=== PATIENT | female | born 1955 | race Two or more races ===

== ENCOUNTER 2018-01-01 11:16 | Emergency (ER) | payer MEDICAID ==
[~2018-01-01 11:16] MED LIST: CEL100T PO; LISI-275 PO; NOR10T; OMEP20TA51 PO
[2018-01-01] MEDS ORDERED: PANTOPRAZOLE 40 MG/10 ML VIAL IV STA (11:25)
[2018-01-01] MEDS ORDERED: SODIUM CHLORIDE 0.9% 500 ML IVB ONE (11:25)
[2018-01-01] MEDS ORDERED: HYDROmorphone HCL 2 MG/ML VL IV ONE ×2 (11:30→15:45)
[2018-01-01] MEDS ORDERED: ONDANSETRON HCL 4 MG/2 ML VIAL IV ONE ×2 (11:30→15:30)
[2018-01-01 12:43] LABS: Hematocrit 25.8 % (36.0-46.0); Hemoglobin 8.6 g/dL (12.2-16.2); Mean Corpuscular Hemoglobin 28.5 pg (28.0-32.0); Mean Corpuscular Hgb Conc. 33.4 g/dL (32.0-36.0); Mean Corpuscular Volume 85.2 fL (80.0-100.0); Platelet Count (auto) 481 10^3/uL (140-450); Red Blood Cells 3.03 10^6/uL (4.0-5.20); Red Cell Distribution Width 14.4 % (11.8-14.3); White Blood Cell 11.7 10^3/uL (4.4-10.8)
[2018-01-01 12:48] LABS: Basophils % (manual) 0 (0.0-2.0); Blast Cells 0; Metamyelocytes % 0; Myelocytes % 0; Promyelocytes % 0; Reactive Lymphocytes 0
[2018-01-01 13:03] LABS: Albumin 2.4 g/dL (3.4-5.0); BUN/Creatinine Ratio 21.1; Bilirubin, Total 0.2 mg/dL (0.2-1.0); Calcium 9.5 mg/dL (8.5-10.1); Magnesium 2.1 mg/dL (1.6-2.6); Potassium 4.4 mmol/L (3.5-5.1); Total Protein 7.9 g/dL (6.4-8.2)
[2018-01-01 13:25] LABS: Band Neutrophils % (manual) 1; Eosinophils % (manual) 6 (0-7); Lymphocytes % (manual) 22 (10.0-50.0); Monocytes % (manual) 5 (0-12)
[2018-01-01 15:07] LABS: Urine Bacteria NONE SEEN /hpf (None Seen); Urine Blood Negative /uL (Negative); Urine Specific Gravity 1.011 (1.001-1.035); Urine WBC 2 /hpf (0 - 5)
[2018-01-01 15:28] VITALS: BP 141/111
[2018-01-01] MEDS ORDERED: MORPHINE SULFATE 8mg/ml INJ SDV IV ONE (15:30)
== END 2018-01-01 16:20 | disposition short-term general hospital (02) ==
LOC: EDBD 11:16 → ER 11:16
DX: D72.829 Elevated white blood cell count, unspecified (principal); R53.1 Weakness; I10 Essential (primary) hypertension; R11.2 Nausea with vomiting, unspecified; Z90.49 Acquired absence of other specified parts of digestive tract; Z87.891 Personal history of nicotine dependence; Z98.890 Other specified postprocedural states; Z91.041 Radiographic dye allergy status
CPT/HCPCS: 36415; 74176; 80053; 81001; 82150; 83690; 83735; 85007; 85027; 93005; 94761; 96361; 96374; 96375; 96376; 99285; C9113; J1170; J2405; J7040

== ENCOUNTER 2024-11-14 00:24 | Inpatient (IN) | payer MEDICAID, OTHER ==
[~2024-11-14] VITALS: Ht 138.4 cm; Wt 54.5 kg
[2024-11-14] MEDS: ONDANSETRON HCL 4 MG/2 ML VIAL IV ONE ×2 (01:30→03:04)
[2024-11-14] MEDS: SODIUM CHLORIDE 0.9% 1,000 ML IV ONE ×2 (01:30→04:10)
[2024-11-14 01:32] VITALS: PULSE 94; RESP 14; O2SAT 95
--- NOTE | 2024-11-14 01:33 | ED.PDOC ---
History of Present Illness HPI Comments 67-year-old female with past medical history pertinent for lupus, HTN, presents to ED for nausea and vomiting x2 days, associated with generalized weakness, headache, abdominal pain. Per patient's , patient has not eaten for two days. Patient also does report heartburn whenever she tries to eat. She denies any shortness of breath, numbness, tingling. No alleviating or aggravating factors. History mostly obtained from and daughter as patient is slow to respond. Chief Complaint: General Weakness Time Seen by MD: 00:31 Primary Care Provider: NO INSURANCE SELF PAY Allergies: Coded Allergies: Iodine (Verified Allergy, Unknown, 04/26/17) Home Meds Active Scripts Celecoxib (CeleBREX CAPSULE) 100 Mg Cp, 1 CAP PO BID PRN, #30 CAP 0 Refills Prov:PARIS KEY MD 05/27/17 Reported Medications Lisinopril (Lisinopril) 5 Mg Tab, 5 MG PO DAILY 11/25/12 Omeprazole (Kls Omeprazole) 20 Mg Tab, 20 MG PO DAILY 02/27/12 Hydrocodone-Acetaminophen (Copen 10/325MG) 1 Tab Tb 02/27/12 Mode of Arrival: Wheelchair Past Medical History PAST MEDICAL HISTORY: HTN, UTI'S Surgical History: Cholecystectomy, , Hernia Repair EXHIBITS COORDINATOR History: No Pertinent EXHIBITS COORDINATOR History Family History Family History: Unknown Social History Smoker: Non-Smoker, Quit Less Than 1 Year Alcohol: Denies ETOH Use Drugs: Denies Drug Use Lives In: Home Constitutional: denies: chills, diaphoresis, fatigue, fever, malaise, sweats, weakness, others EENTM: denies: blurred vision, double vision, ear bleeding, ear discharge, ear drainage, ear pain, ear ringing, eye pain, eye redness, hearing loss, mouth pain, mouth swelling, nasal discharge, nose bleeding, nose congestion, nose pain, photophobia, tearing, throat pain, throat swelling, voice changes, others Respiratory: denies: cough, hemoptysis, orthopnea, SOB at rest, shortness of breath, SOB with excertion, stridor, wheezing, others Cardiovascular: denies: chest pain, dizzy spells, diaphoresis, Dyspnea on exertion, edema, irregular heart beat, left arm pain, lightheadedness, palpitations, PND, syncope, others Gastrointestinal: reports: abdominal pain, nausea, poor appetite, poor fluid intake, vomiting; denies: abdomen distended, blood streaked bowels, constipated, diarrhea, dysphagia, difficulty swallowing, hematemesis, melena, rectal bleeding, rectal pain, others Genitourinary: denies: abnormal vagina bleeding, burning, dyspareunia, dysuria, flank pain, frequency, hematuria, incontinence, pain, , vagina discharge, urgency, others Neurological: reports: headache; denies: dizziness, fainting, left sided numb ness, left sided weakness, numbness, paresthesia, pre-existing deficit, right sided numbness, right sided weakness, seizure, speech problems, tingling, tremors, weakness, others Musculoskeletal: denies: back pain, gout, joint pain, joint swelling, muscle pain, muscle stiffness, neck pain, others Integumetry: denies: bruises, change in color, change in hair/nails, dryness, laceration, lesions, lumps, rash, wounds, others Allergic/Immunocompromised: denies: Difficulty Healing, Frequent Infections, Hives, Itching, others Hematologic/Lymphatic: denies: anemia, blood clots, easy bleeding, easy bruising, swollen glands, others Endocrine: denies: excessive hunger, excessive sweating, excessive thirst, excessive urination, flushing, intolerance to cold, intolerance to heat, unexplained weight gain, unexplained weight loss, others Psychiatric: denies: anxiety, bipolar disorder, depression, hopeless, panic disorder, schizophrenia, sleepless, suicidal, others All Other Systems: Reviewed and Negative Physical Exam General Appearance: Moderate Distress (Patient is toxic or pain. Appears dehydrated and pale. Slow to respond to questions. However alert and oriented x4.), Normal HEENT: Normal ENT Inspection, Pharynx Normal, TMs Normal, Other (Dry mucous membranes.) Neck: Full Range of Motion, Non-Tender, Normal, Normal Inspection Respiratory: Chest Non-Tender, Lungs Clear, No Accessory Muscle Use, No Respiratory Distress, Normal Breath Sounds Cardiovascular: No Edema, No JVD, No Murmur, No Gallop, Normal Peripheral Pulses, Regular Rate/Rhythm Breast Exam: Deferred Gastrointestinal: No Organomegaly, No Pulsatile Mass, Normal Bowel Sounds, Soft, Tenderness (Mild generalized tenderness to palpation of the abdomen) Genitalia: Deferred Pelvic: Deferred Rectal: Deferred Extremities: No calf tenderness, Normal capillary refill, Normal inspection, Normal range of motion, Non-tender, No pedal edema Musculoskeletal : Apperance: Normal Neurologic: Alert, senior architect/design manager II-XII nml as Tested, No Motor Deficits, Normal Affect, Normal Mood, No Sensory Deficits Cerebellar Function: Normal Reflexes: Normal Skin: Dry, Warm, Other (Pale appearing) Lymphatic: No Adenopathy Was a procedure done? Was a procedure done?: No Differential Dx Considerations may include: Dehydration, pancreatitis, pneumonia, UTI, subarachnoid hemorrhage X-Ray, Labs, Meds, VS Vital Signs Date Time Temp Pulse Resp B/P (MAP) Pulse Ox O2 Delivery O2 Flow Rate FiO2 11/14/24 05:04 98.0 119 14 168/70 (102) 100 98.0 11/14/24 04:44 242/93 11/14/24 04:42 242/93 (142) 11/14/24 04:05 185/95 11/14/24 04:00 185/95 (125) 11/14/24 03:30 93 14 208/102 (137) 99 11/14/24 03:05 186/94 11/14/24 03:00 96 16 186/94 (124) 100 11/14/24 02:37 222/117 11/14/24 02:30 94 14 222/117 11/14/24 02:00 93 222/117 (152) 95 11/14/24 01:51 91 14 211/114 11/14/24 01:32 94 14 95 Room Air* 0 21 11/14/24 01:11 96 218/120 (152) 100 11/14/24 01:00 96.7 85 18 160/123 (135) 100 Lab Test 11/14/24 03:57 11/14/24 03:50 11/14/24 03:37 11/14/24 01:36 Range/Units Influenza Type A Antigen Negative Negative Influenza Type B Antigen Negative Negative SARS-CoV-2 Antigen (Rapid) Negative NEGATIVE Urine Color Colorless Yellow Urine Clarity Clear Clear Urine pH 7.0 5.0-9.0 Urine Specific [place] 1.009 1.001-1.035 Urine Protein Trace H Negative Urine Ketones 1+ H Negative Urine Blood Negative Negative /uL Urine Nitrite Negative Negative Urine Bilirubin Negative Negative Urine Urobilinogen Normal Negative mg/dL Urine Leukocyte Esterase Negative Negative /uL Urine RBC 2 0 - 4 /hpf Urine Microscopic WBC < 1 0-5 /HPF Urine Squamous Epithelial Cells None seen <5 /hpf Urine Bacteria None seen None Seen /hpf Urine Mucus Few None Seen Urine Glucose Normal Normal mg/dL Urine Opiates Screen Neg NEGATIVE Urine Fentanyl Screen Neg NEGATIVE Urine Barbiturates Screen Neg NEGATIVE Urine Phencyclidine Screen Neg NEGATIVE Urine Amphetamines Screen Neg NEGATIVE Urine Benzodiazepines Screen Neg NEGATIVE Urine Cocaine Screen Neg NEGATIVE Urine Cannabinoids Screen Neg NEGATIVE Lactic Acid Level 2.5 *H 3.2 *H 0.4-2.0 mmol/L Troponin I High Sensitivity 39 *H 31 </=34 ng/L White Blood Count 3.5 L 4.4-10.8 10^3/uL Red Blood Count 4.92 4.0-5.20 10^6/uL Hemoglobin 17.9 H 12.2-16.2 g/dL Hematocrit 51.4 H 36.0-46.0 % Mean Corpuscular Volume 104.4 H 80.0-100.0 fL Mean Corpuscular Hemoglobin 36.4 H 28.0-32.0 pg Mean Corpuscular Hemoglobin Concent 34.8 32.0-36.0 g/dL Red Cell Distribution Width 15.4 H 11.8-14.3 % Platelet Count 116 L 140-450 10^3/uL Mean Platelet Volume 8.1 6.9-10.8 fL Neutrophils (%) (Auto) 77.4 37.0-80.0 % Lymphocytes (%) (Auto) 16.5 10.0-50.0 % Monocytes (%) (Auto) 4.7 0.0-12.0 % Eosinophils (%) (Auto) 0.8 0.0-7.0 % Basophils (%) (Auto) 0.6 0.0-2.0 % Neutrophils # (Auto) 2.7 1.6-8.6 10 ^3/uL Lymphocytes # (Auto) 0.6 0.4-5.4 10 ^3/uL Monocytes # (Auto) 0.2 0-1.3 10 ^3/uL Eosinophils # (Auto) 0 0-0.8 10 ^3/uL Basophils # (Auto) 0 0-0.2 10 ^3/uL Nucleated Red Blood Cells 0.9 % Platelet Estimate Decreased Large Platelets Few Macrocytosis Slight Sodium Level 140 136-145 mmol/L Potassium Level 3.7 3.5-5.1 mmol/L Chloride Level 101 98-107 mmol/L Carbon Dioxide Level 25 20-31 mmol/L Anion Gap 14 5-15 Blood Urea Nitrogen 11 9-23 mg/dL Creatinine 0.71 0.550-1.02 mg/dL Glomerular Filtration Rate Calc 93 >90 mL/min BUN/Creatinine Ratio 15.5 10.0-20.0 Serum Glucose 131 H 74-106 mg/dL Calcium Level 10.2 8.7-10.4 mg/dL Total Bilirubin 0.6 0.2-1.0 mg/dL Aspartate Amino Transferase (AST) 26 13-40 U/L Alanine Aminotransferase (ALT) 30 7-40 U/L Alkaline Phosphatase 84 46-116 U/L B-Type Natriuretic Peptide 30.36 0-100 pg/mL Total Protein 7.7 5.7-8.2 g/dL Albumin 4.8 3.2-4.8 g/dL Lipase 35 12-53 U/L Test 11/14/24 01:01 Range/Units POC Glucose 123 H 70-106 mg/dl Current Medications Medications (Trade) Dose Ordered Sig/Abrahan Route Start Time Stop Time Status Last Admin Ondansetron HCl (Zofran) 4 mg ONCE ONCE IV 11/14/24 01:00 11/14/24 01:02 DC 11/14/24 01:30 Sodium Chloride 1,000 ml @ 1,000 mls/hr Q1H ONCE IV 11/14/24 01:00 11/14/24 01:59 DC 11/14/24 01:30 Morphine Sulfate 2 mg ONCE ONCE IV 11/14/24 01:45 11/14/24 01:46 DC 11/14/24 01:51 Hydralazine HCl (Apresoline Injection) 10 mg ONCE ONCE IV 11/14/24 02:30 11/14/24 02:31 DC 11/14/24 02:37 Ondansetron HCl (Zofran) 4 mg ONCE ONCE IV 11/14/24 03:00 11/14/24 03:02 DC 11/14/24 03:04 Clonidine HCl (Catapres Tablet) 0.1 mg ONCE ONCE PO 11/14/24 03:15 11/14/24 03:16 DC 11/14/24 03:05 Sodium Chloride 1,000 ml @ 1,000 mls/hr Q1H ONCE IV 11/14/24 03:15 11/14/24 04:14 DC 11/14/24 04:10 Hydralazine HCl (Apresoline Injection) 20 mg ONCE ONCE IV 11/14/24 04:45 11/14/24 04:46 DC 11/14/24 04:44 X-Ray, Labs, Meds, VS Comment CT Head IMPRESSION: 1. No acute intracranial process. CT Abd/Pelv IMPRESSION: 1. Nonobstructing bilateral nephrolithiasis. 2. Diverticulosis. 3. Hiatal hernia. CXR IMPRESSION: 1. No definite acute cardiopulmonary disease. Hazy appearance to the right upper lobe may be a technical artifact. Please correlate with physical examination. MDM: Patient with history as above presented with nausea and vomiting. History obtained from family. Patient was toxic, stable, afebrile, in wheelchair, moderate distress. Exam as above. Labs reviewed. CBC did not show leukocytosis. No anemia noted. CMP did not show significant electrolyte abnormalities. Normal renal function. Lipase within normal limits. Troponin x1 was negative. Lactic acid elevated at 3.2. Independently reviewed imaging. CT head was negative. CT abdomen/pelvis showed nonobstructing bilateral kidney stones. Chest x-ray showed possible right upper lobe hazy appearance, which may also be technical artifact. Based on my evaluation, patient did have clear lung sounds and oxygen level was at 100%, therefore doubt pneumonia. Reviewed external records. All findings were discussed with the patient. Differential diagnosis considered. Overall presentation is consistent with dehydration and kidney stones. Low suspicion for sepsis, ACS, intracranial bleed. Patient was treated with morphine, Zofran, IV fluids with improvement in symptoms. Patient was also given hydralazine at clonidine due to high blood pressure in the 200s. Patient will be admitted to the hospital due to intractable nausea and vomiting and dehydration. Patient will also need pain management for kidney stones. Spoke to on-call [facility] hospitalist Dr. Paris, who states that at this time there is no diagnosis requiring admission. She is requesting results for COVID- 19, influenza, drug screen. Labs are currently ordered and pending. Grajeda catheter has been ordered. The patient will be signed out to ED attending Dr. Rizo at this time since it is the end of my shift. Disposition: Per Dr. Rizo This medical document was created using the [employer] dictation system. Although this document has been carefully reviewed, there may still be some phonetic and typographical errors, which are due to imperfections of the software program, and do not reflect any compromise in the patient's medical care. Time of 1ST Reevaluation: 03:07 Reevaluation 1ST: Improved Time of 2ND Reevaluation: 05:23 Reevaluation 2ND: Worsened (Patient had a generalized tonic-clonic seizure that lasted 1-2 minutes. Patient was given 2 mg of Ativan and the seizure activity stopped.) Patient Education/Counseling: Diagnosis, Treatment, Prognosis, Need For Follow Up Family Education/Counseling: Diagnosis, Treatment, Prognosis, Need For Follow Up Assigned to Dr. Rizo Change of Shift?: Yes Departure 1 Departure Time of Disposition: 03:07 Impression: Primary Impression: Kidney stones Additional Impressions: Dehydration Intractable nausea and vomiting Hypertensive crisis New onset seizure Disposition: ADMITTED INPATIENT Condition: Fair Critical Care Note Critical Care Time?: Yes (35 min-critical care time only) Critical care comment: Total critical care time: Approximately 36 minutes Due to a high probability of clinically significant, life threatening deterioration, the patient required my highest level of preparedness to intervene emergently and I personally spent this critical care time directly and personally managing the patient. This critical care time included obtaining a history; examining the patient; pulse oximetry; ordering and review of studies; arranging urgent treatment with development of a management plan; evaluation of patient's response to treatment; frequent reassessment; and, discussions with other providers. This critical care time was performed to assess and manage the high probability of imminent, life-threatening deterioration that could result in multi-organ failure. It was exclusive of separately billable procedures and treating other patients. Stability Stability form required: No Heart Score Heart Score: Heart Score Response (Comments) Value History N/A 0 EKG N/A 0 Age N/A 0 Risk Factors N/A 0 Troponin N/A 0 Total 0 ODALYS KEY PAC Nov 14, 2024 01:33 SANDRA RIZO MD Nov 14, 2024 05:25
[2024-11-14 01:50] LABS: Basophils # (auto) 0 10 ^3/uL (0-0.2); Basophils % (auto) 0.6 % (0.0-2.0); Eosinophils # (auto) 0 10 ^3/uL (0-0.8); Eosinophils % (auto) 0.8 % (0.0-7.0); Hematocrit 51.4 % (36.0-46.0); Hemoglobin 17.9 g/dL (12.2-16.2); Lymphocytes # (auto) 0.6 10 ^3/uL (0.4-5.4); Lymphocytes % (auto) 16.5 % (10.0-50.0); Mean Corpuscular Hemoglobin 36.4 pg (28.0-32.0); Mean Corpuscular Hgb Conc. 34.8 g/dL (32.0-36.0); Mean Corpuscular Volume 104.4 fL (80.0-100.0); Monocytes # (auto) 0.2 10 ^3/uL (0-1.3); Monocytes % (auto) 4.7 % (0.0-12.0); Neutrophils # (auto) 2.7 10 ^3/uL (1.6-8.6); Neutrophils % (auto) 77.4 % (37.0-80.0); Nucleated Red Blood Cells % 0.9 %; Platelet Count (auto) 116 10^3/uL (140-450); Red Blood Cells 4.92 10^6/uL (4.0-5.20); Red Cell Distribution Width 15.4 % (11.8-14.3); White Blood Cell 3.5 10^3/uL (4.4-10.8)
[2024-11-14] MEDS: MORPHINE SULFATE INJ 2 MG/ml SYRG IV ONE (01:51)
[2024-11-14] MEDS: ACETAMINOPHEN 500 MG TAB or CAP PO ONE (01:54)
[2024-11-14 02:09] LABS: Alanine Aminotransferase 30 U/L (7-40); Alkaline Phosphatase 84 U/L (46-116); Anion Gap 14 (5-15); Aspartate Aminotransferase 26 U/L (13-40); BUN/Creatinine Ratio 15.5 (10.0-20.0); Blood Urea Nitrogen 11 mg/dL (9-23); Calcium 10.2 mg/dL (8.7-10.4); Carbon Dioxide 25 mmol/L (20-31); Chloride 101 mmol/L (98-107); Lipase 35 U/L (12-53); Potassium 3.7 mmol/L (3.5-5.1); Sodium 140 mmol/L (136-145)
[2024-11-14 02:10] LABS: Albumin 4.8 g/dL (3.2-4.8); Bilirubin, Total 0.6 mg/dL (0.2-1.0); Platelet Estimate Decreased; Total Protein 7.7 g/dL (5.7-8.2)
[2024-11-14 02:11] LABS: Glucose 131 mg/dL (74-106); Large Platelets FEW; Macrocytosis Slight
[2024-11-14 02:12] LABS: Lactic Acid w/Reflex 3.2 mmol/L (0.4-2.0)
--- NOTE | 2024-11-14 02:31 | DVH ---
CHEST RADIOGRAPH Indication: R/o pneumonia Technique: Single frontal view of the chest was obtained COMPARISON: None FINDINGS: Lines and Tubes: None Lungs: There is a hazy appearance to the right upper lobe which may be technical. Please correlate w ith physical examination. Pleura: No effusion. No pneumothorax. Cardiomediastinal contours: Unremarkable Bones: Unremarkable IMPRESSION: 1. No definite acute cardiopulmonary disease. Hazy appearance to the right upper lobe may be a technica l artifact. Please correlate with physical examination.
--- NOTE | 2024-11-14 02:36 | DVH ---
CT HEAD WITHOUT CONTRAST INDICATION: Headache COMPARISON: None TECHNIQUE: CT of the head without intravenous contrast. RADIATION DOSE: CTDIvol: 5.41 mGy, DLP: 1115.37 mGy*cm FINDINGS: There is no evidence of acute intracranial hemorrhage, extra-axial collection, mass effect, midline s hift, herniation or hydrocephalus. There is a small chronic lacunar infarct in the left corpus striat um and in the right basal ganglia. The ventricles, sulci and cisterns are age appropriate. The skinner- white differentiation is intact. Mastoid air cells are under developed. There is no significant para nasal sinus disease. The surrounding soft tissues and osseous structures are unremarkable. IMPRESSION: 1. No acute intracranial process.
[2024-11-14] MEDS: hydrALAZINE HCL 20 MG/ML VL IV ONE ×2 (02:37→04:44)
--- NOTE | 2024-11-14 02:51 | DVH ---
Exam: CT CT AB PEL WO CON-NO ORAL OR IV History: n/v x 2 days Comparison Study: None available at time of dictation. Technique: Multidetector spiral CT of the abdomen was performed from lung bases to iliac crest. Imag ing was performed without IV contrast. Axial, coronal and sagittal multiplanar reformats were obtain ed from the axial data set by the technologist. Radiation Dose : CT Dose: CTDI volume is 52.23 mGy. Dose-length product is 1115.37 mGy*cm Findings: Evaluation of solid organs is limited due to lack of intravenous contrast use. Lung Bases: There is ground-glass attenuation in the lungs with scattered cysts and pneumatoceles and basilar atelectasis. Liver: The liver is normal in size. No focal lesions. Gallbladder and Biliary Tree: The gallbladder is partially distended. Spleen: Unremarkable Pancreas: The pancreas is grossly normal in appearance. Adrenal Glands: Unremarkable Kidneys: The kidneys are normal in overall size and general contour without hydronephrosis. In the p osterior right midportion there is a 4 mm nonobstructing calculus. At the left upper and lower poles are punctate nonobstructing calculi. Bladder: Contracted. Visualized Bowel: There is a tiny hiatal hernia. There is no evidence for small bowel obstruction. M [id number] stool is noted in the colon. Scattered sigmoid diverticula are present. A normal robles endix is identified in the right lower quadrant. Ascites: Absent Lymphadenopathy: No mesenteric, retroperitoneal or periportal lymphadenopathy. Abdominal Wall and Mesentery: Unremarkable. Vasculature: The abdominal aorta is normal in course and caliber but heavily calcified. Musculoskeletal: There is notable degenerative change about the hips. IMPRESSION: 1. Nonobstructing bilateral nephrolithiasis. 2. Diverticulosis. 3. Hiatal hernia. Radiation optimization: All CT scans at this facility use at least one of these dose optimization norberto hniques: automated exposure control mA and/or kV adjustment per patient size (includes targeted exam s where dose is matched to clinical indication) or iterative reconstruction.
[2024-11-14] MEDS ORDERED: cloNIDine HCL 0.1 MG TAB PO ONE (03:00)
[2024-11-14] MEDS: cloNIDine HCL 0.1 MG TAB PO ONE (03:05)
[2024-11-14 03:55] LABS: Urine Bacteria None Seen /hpf (None Seen)
[2024-11-14 04:05] LABS: Urine Blood Negative /uL (Negative); Urine Clarity Clear (Clear); Urine Color Colorless (Yellow); Urine Mucus FEW (None Seen); Urine Protein, UAD TRACE (Negative); Urine Specific Gravity 1.009 (1.001-1.035); Urine Squamous Epithelial Cell None Seen /hpf (<5); Urine Urobilinogen Normal (Negative); Urine WBC < 1 /HPF (0-5)
[2024-11-14 04:14] LABS: Opiate Scree,Urine Neg (NEGATIVE)
[2024-11-14 04:16] LABS: Amphetamine Screen, Urine Neg (NEGATIVE); Barbiturate Scree,Urine Neg (NEGATIVE); Benzodiazephine Screen, Urine Neg (NEGATIVE); Cannabinoid Screen, Urine Neg (NEGATIVE); Cocaine Screen, Urine Neg (NEGATIVE); Phencyclidine Screen, Urine Neg (NEGATIVE)
[2024-11-14 04:32] LABS: Rapid Influenza A Negative (Negative); Rapid Influenza B Negative (Negative)
[2024-11-14 04:33] LABS: COVID19 ANTIGEN SOFIA FIA NEGATIVE (NEGATIVE)
[2024-11-14] MEDS: LORazepam 2MG/ML-1ML VIAL ONE (05:22)
--- NOTE | 2024-11-14 05:33 | ECG ---
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
--- NOTE | 2024-11-14 06:08 | DVH ---
EXAM: CT Head Without Intravenous Contrast CLINICAL INDICATION: INCREASED CONFUSION POST SEIZURE TECHNIQUE: Axial computed tomography images of the head/brain without intravenous contrast. This CT exam was performed using one or more of the following dose reduction techniques: automated exposure control, adjustment of the mA and/or kV according to patient size, and/or use of iterative reconstru ction technique. CONTRAST: RADIATION DOSE: CTDIvol = 52.23 mGy, DLP = 837.36 mGy-cm COMPARISON: CT HEAD WITHOUT CONTRAST on DOS: 11/14/24, CT Head dated 11/14/2024 FINDINGS: BRAIN AND EXTRA-AXIAL SPACES: The cerebral and cerebellar sulci are prominent consistent with brain atrophy. Areas of decreased attenuation in the deep cerebral white matter are consistent with small vessel ischemic/degenerative changes. No acute intracranial hemorrhage, midline shift or mass effec t. If symptoms persist, further evaluation with MRI is recommended. BONES/JOINTS: Unremarkable. No acute fracture. SOFT TISSUES: Unremarkable. SINUSES: Unremarkable as visualized. No acute sinusitis. MASTOID AIR CELLS: Unremarkable as visualized. No mastoid effusion. OTHER FINDINGS: No significant changes since the prior exam. . IMPRESSION: 1. Generalized brain atrophy. 2. Small vessel ischemic/degenerative changes. 3. No acute intracranial hemorrhage, midline shift or mass effect. If symptoms persist, further eval uation with MRI is recommended. 4. No significant changes since the prior exam.
--- NOTE | 2024-11-14 06:09 | DVH ---
EXAM: XR Chest, 1 View CLINICAL INDICATION: POSSIBLE ASPIRATION WITH SEIZURE TECHNIQUE: Frontal view of the chest. COMPARISON: XY CHEST XRAY 1 VIEW on DOS: 11/14/24 FINDINGS: LUNGS AND PLEURAL SPACES: Unremarkable. No consolidation. No pneumothorax. HEART: Unremarkable. No cardiomegaly. MEDIASTINUM: Unremarkable. Normal mediastinal contour. BONES/JOINTS: Unremarkable. No acute fracture. OTHER FINDINGS: . None. IMPRESSION: No acute cardiopulmonary process.
[2024-11-14] MEDS ORDERED: METO25TA5 PO (06:10)
[2024-11-14] MEDS ORDERED: PRED2.5T4 PO (06:11)
[2024-11-14] MEDS ORDERED: HYDR200T36 PO (06:12)
[2024-11-14] MEDS ORDERED: METH2.5T PO (06:14)
[2024-11-14] MEDS: levETIRAcetam 1000 mg/100ml 100 ML IV ONE (06:53)
[2024-11-14] MEDS ORDERED: MORPHINE SULFATE INJ 2 MG/ml SYRG IV PRN (07:15)
[2024-11-14] MEDS ORDERED: NITROGLYCERIN 0.4 MG SL TAB SL PRN (07:15)
[2024-11-14] MEDS ORDERED: ONDANSETRON HCL 4 MG/2 ML VIAL IV PRN (07:15)
[2024-11-14] MEDS ORDERED: LORazepam 2MG/ML-1ML VIAL IV PRN (07:30)
--- NOTE | 2024-11-14 07:33 | DVHHP2 ---
Admitting Diagnosis: AMS, seizures, elevated troponin History of Present Illness HPI 67 y.o. female with Lupus, HTN, h/o multiple abdominal surgeries, h/o SBOs, arrived to the ER c/o nausea, vomiting, heartburn, AMS and not able to eat for the past 2 days. In the ER her BP was high at 242/93 and she was given several BP medications. Patient had a seizure in the ER at 5:20 and was given Ativan and Keppra. CT of the abdomen showed no acute finding. Home Meds Active Scripts Amlodipine Besylate (NORVASC TABLET) 5 Mg Tb, 10 MG PO DAILY for 30 Days, #60 TAB 2 Refills Prov:JOSE MANUELARMANI S DO 11/16/24 Losartan Potassium (Losartan Potassium) 50 Mg Tab, 100 MG PO DAILY for 30 Days, #60 TAB 2 Refills Prov:JOSE MANUELARMANI S DO 11/16/24 Celecoxib (CeleBREX CAPSULE) 100 Mg Cp, 1 CAP PO BID PRN, #30 CAP 0 Refills Prov:PARIS KEY MD 05/27/17 Reported Medications Methotrexate (Methotrexate) 2.5 Mg Tab, 2.5 MG PO 2XW, MG 11/14/24 Hydroxychloroquine Sulfate (Hydroxychloroquine Sulfat) 200 Mg Tab, 200 MG PO DAILY for 30 Days, MG 11/14/24 Prednisone (Prednisone) 2.5 Mg Tab, 2.5 MG PO DAILY, TAB 11/14/24 Metoprolol Tartrate (Metoprolol Tartrate) 25 Mg Tab, 25 MG PO DAILY for 30 Days, MG 11/14/24 Past Medical History Cardiac: HTN Rheumotologic: SLE Past Surgical History: Cholecystectomy, Laparotomy Patient Family History: Family history: Diabetes mellitus G8 FATHER Gout G8 FATHER Prostate cancer G8 BROTHER G8 BROTHER Review of Systems Gastrointestinal: Nausea, Vomiting, Abdominal Pain Psychiatric: Confusion, Seizures H&P Exam Vital Signs Vital Signs Date Time Temp Pulse Resp B/P (MAP) Pulse Ox O2 Delivery O2 Flow Rate FiO2 11/14/24 06:41 119 12 133/70 (91) 99 11/14/24 05:58 97.8 97.8 11/14/24 01:32 Room Air* 0 21 General Appeara: Severe distress Head Exam: Normal inspection Neck Exam: Normal inspection Eye Exam: bilateral eye PERRL Pulmonary/Respiratory: Lungs clear Cardiovascular/Chest: Tachycardia Abdominal Pain Onset Location: Epigastric Neuro/Mental St: Lethargic Labs/Xrays Labs Test 11/14/24 06:10 11/14/24 05:56 11/14/24 03:57 11/14/24 03:50 Range/Units Troponin I High Sensitivity 39 *H </=34 ng/L Plasma/Serum Blood Alcohol < 3.0 <10 mg/dL POC Glucose 191 H 70-106 mg/dl Influenza Type A Antigen Negative Negative Influenza Type B Antigen Negative Negative SARS-CoV-2 Antigen (Rapid) Negative NEGATIVE Urine Color Colorless Yellow Urine Clarity Clear Clear Urine pH 7.0 5.0-9.0 Urine Specific [place] 1.009 1.001-1.035 Urine Protein Trace H Negative Urine Ketones 1+ H Negative Urine Blood Negative Negative /uL Urine Nitrite Negative Negative Urine Bilirubin Negative Negative Urine Urobilinogen Normal Negative mg/dL Urine Leukocyte Esterase Negative Negative /uL Urine RBC 2 0 - 4 /hpf Urine Microscopic WBC < 1 0-5 /HPF Urine Squamous Epithelial Cells None seen <5 /hpf Urine Bacteria None seen None Seen /hpf Urine Mucus Few None Seen Urine Glucose Normal Normal mg/dL Urine Opiates Screen Neg NEGATIVE Urine Fentanyl Screen Neg NEGATIVE Urine Barbiturates Screen Neg NEGATIVE Urine Phencyclidine Screen Neg NEGATIVE Urine Amphetamines Screen Neg NEGATIVE Urine Benzodiazepines Screen Neg NEGATIVE Urine Cocaine Screen Neg NEGATIVE Urine Cannabinoids Screen Neg NEGATIVE Test 11/14/24 03:37 11/14/24 01:36 Range/Units Lactic Acid Level 2.5 *H 0.4-2.0 mmol/L White Blood Count 3.5 L 4.4-10.8 10^3/uL Red Blood Count 4.92 4.0-5.20 10^6/uL Hemoglobin 17.9 H 12.2-16.2 g/dL Hematocrit 51.4 H 36.0-46.0 % Mean Corpuscular Volume 104.4 H 80.0-100.0 fL Mean Corpuscular Hemoglobin 36.4 H 28.0-32.0 pg Mean Corpuscular Hemoglobin Concent 34.8 32.0-36.0 g/dL Red Cell Distribution Width 15.4 H 11.8-14.3 % Platelet Count 116 L 140-450 10^3/uL Mean Platelet Volume 8.1 6.9-10.8 fL Neutrophils (%) (Auto) 77.4 37.0-80.0 % Lymphocytes (%) (Auto) 16.5 10.0-50.0 % Monocytes (%) (Auto) 4.7 0.0-12.0 % Eosinophils (%) (Auto) 0.8 0.0-7.0 % Basophils (%) (Auto) 0.6 0.0-2.0 % Neutrophils # (Auto) 2.7 1.6-8.6 10 ^3/uL Lymphocytes # (Auto) 0.6 0.4-5.4 10 ^3/uL Monocytes # (Auto) 0.2 0-1.3 10 ^3/uL Eosinophils # (Auto) 0 0-0.8 10 ^3/uL Basophils # (Auto) 0 0-0.2 10 ^3/uL Nucleated Red Blood Cells 0.9 % Platelet Estimate Decreased Large Platelets Few Macrocytosis Slight Sodium Level 140 136-145 mmol/L Potassium Level 3.7 3.5-5.1 mmol/L Chloride Level 101 98-107 mmol/L Carbon Dioxide Level 25 20-31 mmol/L Anion Gap 14 5-15 Blood Urea Nitrogen 11 9-23 mg/dL Creatinine 0.71 0.550-1.02 mg/dL Glomerular Filtration Rate Calc 93 >90 mL/min BUN/Creatinine Ratio 15.5 10.0-20.0 Serum Glucose 131 H 74-106 mg/dL Calcium Level 10.2 8.7-10.4 mg/dL Total Bilirubin 0.6 0.2-1.0 mg/dL Aspartate Amino Transferase (AST) 26 13-40 U/L Alanine Aminotransferase (ALT) 30 7-40 U/L Alkaline Phosphatase 84 46-116 U/L B-Type Natriuretic Peptide 30.36 0-100 pg/mL Total Protein 7.7 5.7-8.2 g/dL Albumin 4.8 3.2-4.8 g/dL Lipase 35 12-53 U/L Assessment/Plan Problem List: (1) New onset seizure (2) Hypertensive crisis (3) Intractable nausea and vomiting (4) Dehydration Plan NPO, MRI, neurology consult, BP control Plan discussed with: Patient TAYLOR ANNE MD Nov 14, 2024 07:33
[2024-11-14 07:46] LABS: Base Excess -4.1 mmol/L (-2.0-3.0)
--- NOTE | 2024-11-14 08:37 | DVH ---
CLINICAL INDICATION: 67 years old, Female; increased confusion post seizure. COMPARISON: Same day CT head exam. TECHNIQUE: Multisequence multiplanar MRI images of the brain were obtained without contrast. FINDINGS: No acute infarct or hemorrhage. No mass or midline shift. T2/FLAIR hyperintense signal in the occipital lobes bilaterally predominantly involving the cortical subcortical white matter, may be due to postictal changes given the patient's history. Additional small foci of T2/FLAIR hyperintense signal in the periventricular white matter are nonspecific, but most likely sequelae of mild chronic small-vessel ischemic disease. Ventricles and sulci are within normal limits. Basal cisterns are pat ent. Cerebellum, brainstem, and midline structures are within normal limits. Mild mucosal thickening of the paranasal sinuses. Orbits are grossly unremarkable. IMPRESSION: 1. No evidence of acute infarct or hemorrhage. 2. T2/FLAIR hyperintense signal in the occipital lobes bilaterally, may be seen in the setting of pos tictal changes.Additional nonacute 3. Findings as described above.
[2024-11-14] MEDS: SOD CHL 0.45% 1,000 ML IV ONE (09:16)
--- NOTE | 2024-11-14 09:23 | DVHINCON2 ---
Date of service: Nov 14, 2024 History of Present Illness 67 yo F with htn, lupus admitted for severe HTN emergency and possible seizure. pt is altered now. bp 170s now. ecg showed SR with diffuse sT depressoions. Past Medical History reviewed Family History: Family history: Diabetes mellitus G8 FATHER Gout G8 FATHER Prostate cancer G8 BROTHER G8 BROTHER Allergies: Coded Allergies: Iodine (Verified Allergy, Unknown, 04/26/17) Home Meds Active Scripts Celecoxib (CeleBREX CAPSULE) 100 Mg Cp, 1 CAP PO BID PRN, #30 CAP 0 Refills Prov:PARIS KEY MD 05/27/17 Reported Medications Methotrexate (Methotrexate) 2.5 Mg Tab, 2.5 MG PO 2XW, MG 11/14/24 Hydroxychloroquine Sulfate (Hydroxychloroquine Sulfat) 200 Mg Tab, 200 MG PO DAILY for 30 Days, MG 11/14/24 Prednisone (Prednisone) 2.5 Mg Tab, 2.5 MG PO DAILY, TAB 11/14/24 Metoprolol Tartrate (Metoprolol Tartrate) 25 Mg Tab, 25 MG PO DAILY for 30 Days, MG 11/14/24 Discontinued Reported Medications Lisinopril (Lisinopril) 5 Mg Tab, 5 MG PO DAILY 11/25/12 Hydrocodone-Acetaminophen ([place] 10/325MG) 1 Tab Tb 02/27/12 Current Medications Current Medications Medications (Trade) Dose Ordered Sig/Abrahan Route PRN Reason Start Time Stop Time Status Last Admin Nitroglycerin (Ntrostat Sublingual) 0.4 mg Q5MINP PRN SL FOR CHEST PAIN 11/14/24 07:15 Morphine Sulfate 2 mg Q30M PRN IV FOR CHEST PAIN 11/14/24 07:15 Ondansetron HCl (Zofran) 4 mg Q6HPRN PRN IV NAUSEA / VOMITING 11/14/24 07:15 Lorazepam (Ativan Inj) 1 mg Q1HP PRN IV seizures 11/14/24 07:30 Review of Systems not obtained Vital Signs Vital Signs Date Time Temp Pulse Resp B/P (MAP) Pulse Ox O2 Delivery O2 Flow Rate FiO2 11/14/24 08:34 Nasal Cannula* 2 28 11/14/24 08:21 113 11/14/24 08:15 97.6 12 170/88 (115) 98 97.6 Physical Exam altered NAD s1 s2 rrr diffuse rhonchi abd soft nt no edema Labs/Diagnostic Data Labs Test 11/14/24 08:39 11/14/24 07:38 11/14/24 06:10 11/14/24 05:56 Range/Units Ammonia 12 11-32 umol/L Blood Gas Specimen Type Arterial Blood Gas Sample Site Right radial Blood Gas Patient Temperature 37.0 Arterial Blood Date Drawn [id number] Arterial Blood pH 7.287 L 7.350-7.450 Arterial Blood Partial Pressure CO2 49.2 H 32.0-45.0 mmHg Arterial Blood Partial Pressure O2 270.1 H 83.0-108.0 mmHg Arterial Blood HCO3 23.0 21.0-28.0 mmol/L Arterial Blood Oxygen Saturation 99.7 H 94.0-98.0 % Arterial Blood Base Excess -4.1 L -2.0-3.0 mmol/L Arterial Blood Oxyhemoglobin 98.3 H 94.0-98.0 % Arterial Blood Carboxyhemoglobin 0.7 0.5-1.5 % Arterial Blood Methemoglobin 0.7 0.0-1.5 % Peng Test Yes Blood Gas Total Hemoglobin 16.00 12.0-16.0 g/dL Blood Gas Liter Flow 8.00 Blood Gas Modality Mask - simple FiO2 % 56.0 Troponin I High Sensitivity 39 *H </=34 ng/L Plasma/Serum Blood Alcohol < 3.0 <10 mg/dL POC Glucose 191 H 70-106 mg/dl Test 11/14/24 03:57 11/14/24 03:50 11/14/24 03:37 11/14/24 01:36 Range/Units Influenza Type A Antigen Negative Negative Influenza Type B Antigen Negative Negative SARS-CoV-2 Antigen (Rapid) Negative NEGATIVE Urine Color Colorless Yellow Urine Clarity Clear Clear Urine pH 7.0 5.0-9.0 Urine Specific [place] 1.009 1.001-1.035 Urine Protein Trace H Negative Urine Ketones 1+ H Negative Urine Blood Negative Negative /uL Urine Nitrite Negative Negative Urine Bilirubin Negative Negative Urine Urobilinogen Normal Negative mg/dL Urine Leukocyte Esterase Negative Negative /uL Urine RBC 2 0 - 4 /hpf Urine Microscopic WBC < 1 0-5 /HPF Urine Squamous Epithelial Cells None seen <5 /hpf Urine Bacteria None seen None Seen /hpf Urine Mucus Few None Seen Urine Glucose Normal Normal mg/dL Urine Opiates Screen Neg NEGATIVE Urine Fentanyl Screen Neg NEGATIVE Urine Barbiturates Screen Neg NEGATIVE Urine Phencyclidine Screen Neg NEGATIVE Urine Amphetamines Screen Neg NEGATIVE Urine Benzodiazepines Screen Neg NEGATIVE Urine Cocaine Screen Neg NEGATIVE Urine Cannabinoids Screen Neg NEGATIVE Lactic Acid Level 2.5 *H 0.4-2.0 mmol/L White Blood Count 3.5 L 4.4-10.8 10^3/uL Red Blood Count 4.92 4.0-5.20 10^6/uL Hemoglobin 17.9 H 12.2-16.2 g/dL Hematocrit 51.4 H 36.0-46.0 % Mean Corpuscular Volume 104.4 H 80.0-100.0 fL Mean Corpuscular Hemoglobin 36.4 H 28.0-32.0 pg Mean Corpuscular Hemoglobin Concent 34.8 32.0-36.0 g/dL Red Cell Distribution Width 15.4 H 11.8-14.3 % Platelet Count 116 L 140-450 10^3/uL Mean Platelet Volume 8.1 6.9-10.8 fL Neutrophils (%) (Auto) 77.4 37.0-80.0 % Lymphocytes (%) (Auto) 16.5 10.0-50.0 % Monocytes (%) (Auto) 4.7 0.0-12.0 % Eosinophils (%) (Auto) 0.8 0.0-7.0 % Basophils (%) (Auto) 0.6 0.0-2.0 % Neutrophils # (Auto) 2.7 1.6-8.6 10 ^3/uL Lymphocytes # (Auto) 0.6 0.4-5.4 10 ^3/uL Monocytes # (Auto) 0.2 0-1.3 10 ^3/uL Eosinophils # (Auto) 0 0-0.8 10 ^3/uL Basophils # (Auto) 0 0-0.2 10 ^3/uL Nucleated Red Blood Cells 0.9 % Platelet Estimate Decreased Large Platelets Few Macrocytosis Slight Sodium Level 140 136-145 mmol/L Potassium Level 3.7 3.5-5.1 mmol/L Chloride Level 101 98-107 mmol/L Carbon Dioxide Level 25 20-31 mmol/L Anion Gap 14 5-15 Blood Urea Nitrogen 11 9-23 mg/dL Creatinine 0.71 0.550-1.02 mg/dL Glomerular Filtration Rate Calc 93 >90 mL/min BUN/Creatinine Ratio 15.5 10.0-20.0 Serum Glucose 131 H 74-106 mg/dL Calcium Level 10.2 8.7-10.4 mg/dL Total Bilirubin 0.6 0.2-1.0 mg/dL Aspartate Amino Transferase (AST) 26 13-40 U/L Alanine Aminotransferase (ALT) 30 7-40 U/L Alkaline Phosphatase 84 46-116 U/L B-Type Natriuretic Peptide 30.36 0-100 pg/mL Total Protein 7.7 5.7-8.2 g/dL Albumin 4.8 3.2-4.8 g/dL Lipase 35 12-53 U/L Assessment r/o CVA htn-sive emergency subendocardial ischemia/ st depressions AMS frailty Plan/Recommendation cont BP control goal of 160s-180s prn nicardipine gtt on no gtt for now check echo for lvef abnormal ecg likely 2/2 to HTN, trops are not impressive no chest pain cont supportive care poor prognosis Plan discussed with: Patient JAKUB CARRILLO MD Nov 14, 2024 09:23
--- NOTE | 2024-11-14 09:30 | DVHINCON2 ---
Date of service: Nov 14, [address] Paris Reason for Consultation AMS, seizures History of Present Illness Mr. Mccall is a 67 years old right-handed female with a history of hypertension, arthritis, lupus, she was brought to the hospital on 11/14/2024 with a chief company of general weakness, headache. The patient was also had seizure activity in the hospital, at that time, she respond to light painful stimuli, the history is obtained from her daughter, who was in the room She was seizure activity cmo & president, in that she was shaking all over her body with nonresponsiveness, the patient was given 2 mg of Ativan. According to her daughter, the patient was has no history of seizure disorder, or convulsion, she was no history of stroke, head trauma, intracranial infection or family history of seizure disorder RN note, 11/14/2024 0520: Patient began having seizures, Dr. Boaz colvin gave verbal orders for 2mg of ativan Iv one time. Order read back and verified. Her daughter also relates the patient was has not been doing well for a few days. On 11/11/2024, she developed that confusion, headache, nausea, vomiting, and she did not eat, but there was no diarrhea, the patient was not able to walk or stand. At home, the patient was still able to express herself. In the hospital, she was found to have very high blood pressure The case has been discussed with Dr.Tahhan LOPEZ, 11/14/2024: Negative Plasma alcohol, 11/14/2024: <3 Urinalysis, 11/14/2024: WBC: <1, urine leukocyte esterase: Negative ABG, 11/14/2024: Respiratory acidosis WBC/HB/PLT/MCV, 11/14/2024: 3.5/17.9/116/104.4 Lactic acid, 11/14/2024: 3.2, 2.5 CMP, 11/14/2024: Unremarkable NH3, 11/14/2024:12 CT head, 11/14/2024: 1. Generalized brain atrophy. 2. Small vessel ischemic/degenerative changes. 3. No acute intracranial hemorrhage, midline shift or mass effect. If symptoms persist, further evaluation with MRI is recommended. 4. No significant changes since the prior exam. MRI head, 11/14/2024: 1. No evidence of acute infarct or hemorrhage. 2. T2/FLAIR hyperintense signal in the occipital lobes bilaterally, may be seen in the setting of postictal changes.Additional nonacute 3. Findings as described above. Past Medical History Hypertension,arthritis, lupus Past Surgical History , hernia repair, ileostomy Family History: Family history: Diabetes mellitus G8 FATHER Gout G8 FATHER Prostate cancer G8 BROTHER G8 BROTHER Family History Diabetes, stroke, gout Social History She was a tobacco smoker, but no history of alcohol or drug abuse Allergies: Coded Allergies: Iodine (Verified Allergy, Unknown, 04/26/17) Home Meds Active Scripts Celecoxib (CeleBREX CAPSULE) 100 Mg Cp, 1 CAP PO BID PRN, #30 CAP 0 Refills Prov:PARIS KEY MD 05/27/17 Reported Medications Methotrexate (Methotrexate) 2.5 Mg Tab, 2.5 MG PO 2XW, MG 11/14/24 Hydroxychloroquine Sulfate (Hydroxychloroquine Sulfat) 200 Mg Tab, 200 MG PO DAILY for 30 Days, MG 11/14/24 Prednisone (Prednisone) 2.5 Mg Tab, 2.5 MG PO DAILY, TAB 11/14/24 Metoprolol Tartrate (Metoprolol Tartrate) 25 Mg Tab, 25 MG PO DAILY for 30 Days, MG 11/14/24 Discontinued Reported Medications Lisinopril (Lisinopril) 5 Mg Tab, 5 MG PO DAILY 11/25/12 Hydrocodone-Acetaminophen ([place] 10/325MG) 1 Tab Tb 02/27/12 Current Medications Current Medications Medications (Trade) Dose Ordered Sig/Abrahan Route PRN Reason Start Time Stop Time Status Last Admin Nitroglycerin (Ntrostat Sublingual) 0.4 mg Q5MINP PRN SL FOR CHEST PAIN 11/14/24 07:15 Morphine Sulfate 2 mg Q30M PRN IV FOR CHEST PAIN 11/14/24 07:15 Ondansetron HCl (Zofran) 4 mg Q6HPRN PRN IV NAUSEA / VOMITING 11/14/24 07:15 Lorazepam (Ativan Inj) 1 mg Q1HP PRN IV seizures 11/14/24 07:30 Review of Systems As above, the other systems are negative Vital Signs Vital Signs Date Time Temp Pulse Resp B/P (MAP) Pulse Ox O2 Delivery O2 Flow Rate FiO2 11/14/24 08:34 Nasal Cannula* 2 28 11/14/24 08:21 113 11/14/24 08:15 97.6 12 170/88 (115) 98 97.6 Physical Exam GENERAL EXAM: General: the patient is well developed and nourished. No acute distress. HEENT: Normocephalic, neck is supple, no carotid bruits. No mass. RESPIRATORY: Normal respiratory effort with symmetrical lung expansion. Lungs clear to auscultation. CARDIOVASCULAR: Regular rate and rhythm with no murmurs. S1, S2. ABDOMEN: Soft, nontender, normal bowel sound NEUROLOGICAL: MENTAL STATUS: HPI SPEECH, LANGUAGE, HIGHER CORTICAL FUNCTION: no aphasia or dysathria. CRANIAL NERVES: #2: Deferred #3,4,6: Pupils are equal, round and reactive. She has doll's eye and corneal reflexes #5: Facial sensation okay to painful stimuli in all three divisions bilaterally. Mandibular strength intact. #7: Facial muscles symmetrical and strength intact. #8: Deferred #9,10: Deferred #11: Deferred #12: Deferred SENSATION: Okay to painful stimuli MOTOR: Normal tone in the upper and lower extremity. Normal muscle bulk. No fasciculations. No abnormal movements or posturing. No spontaneous movement in the extremities REFLEXES: Deep tendon reflexes are symmetrical. No pathological reflexes. CEREBELLAR/COORDINATION: Deferred GAIT/STATION: deferred. Labs/Diagnostic Data Labs Test 11/14/24 08:39 11/14/24 07:38 11/14/24 06:10 11/14/24 05:56 Range/Units Ammonia 12 11-32 umol/L Blood Gas Specimen Type Arterial Blood Gas Sample Site Right radial Blood Gas Patient Temperature 37.0 Arterial Blood Date Drawn [id number] Arterial Blood pH 7.287 L 7.350-7.450 Arterial Blood Partial Pressure CO2 49.2 H 32.0-45.0 mmHg Arterial Blood Partial Pressure O2 270.1 H 83.0-108.0 mmHg Arterial Blood HCO3 23.0 21.0-28.0 mmol/L Arterial Blood Oxygen Saturation 99.7 H 94.0-98.0 % Arterial Blood Base Excess -4.1 L -2.0-3.0 mmol/L Arterial Blood Oxyhemoglobin 98.3 H 94.0-98.0 % Arterial Blood Carboxyhemoglobin 0.7 0.5-1.5 % Arterial Blood Methemoglobin 0.7 0.0-1.5 % Peng Test Yes Blood Gas Total Hemoglobin 16.00 12.0-16.0 g/dL Blood Gas Liter Flow 8.00 Blood Gas Modality Mask - simple FiO2 % 56.0 Troponin I High Sensitivity 39 *H </=34 ng/L Plasma/Serum Blood Alcohol < 3.0 <10 mg/dL POC Glucose 191 H 70-106 mg/dl Test 11/14/24 03:57 11/14/24 03:50 11/14/24 03:37 11/14/24 01:36 Range/Units Influenza Type A Antigen Negative Negative Influenza Type B Antigen Negative Negative SARS-CoV-2 Antigen (Rapid) Negative NEGATIVE Urine Color Colorless Yellow Urine Clarity Clear Clear Urine pH 7.0 5.0-9.0 Urine Specific [place] 1.009 1.001-1.035 Urine Protein Trace H Negative Urine Ketones 1+ H Negative Urine Blood Negative Negative /uL Urine Nitrite Negative Negative Urine Bilirubin Negative Negative Urine Urobilinogen Normal Negative mg/dL Urine Leukocyte Esterase Negative Negative /uL Urine RBC 2 0 - 4 /hpf Urine Microscopic WBC < 1 0-5 /HPF Urine Squamous Epithelial Cells None seen <5 /hpf Urine Bacteria None seen None Seen /hpf Urine Mucus Few None Seen Urine Glucose Normal Normal mg/dL Urine Opiates Screen Neg NEGATIVE Urine Fentanyl Screen Neg NEGATIVE Urine Barbiturates Screen Neg NEGATIVE Urine Phencyclidine Screen Neg NEGATIVE Urine Amphetamines Screen Neg NEGATIVE Urine Benzodiazepines Screen Neg NEGATIVE Urine Cocaine Screen Neg NEGATIVE Urine Cannabinoids Screen Neg NEGATIVE Lactic Acid Level 2.5 *H 0.4-2.0 mmol/L White Blood Count 3.5 L 4.4-10.8 10^3/uL Red Blood Count 4.92 4.0-5.20 10^6/uL Hemoglobin 17.9 H 12.2-16.2 g/dL Hematocrit 51.4 H 36.0-46.0 % Mean Corpuscular Volume 104.4 H 80.0-100.0 fL Mean Corpuscular Hemoglobin 36.4 H 28.0-32.0 pg Mean Corpuscular Hemoglobin Concent 34.8 32.0-36.0 g/dL Red Cell Distribution Width 15.4 H 11.8-14.3 % Platelet Count 116 L 140-450 10^3/uL Mean Platelet Volume 8.1 6.9-10.8 fL Neutrophils (%) (Auto) 77.4 37.0-80.0 % Lymphocytes (%) (Auto) 16.5 10.0-50.0 % Monocytes (%) (Auto) 4.7 0.0-12.0 % Eosinophils (%) (Auto) 0.8 0.0-7.0 % Basophils (%) (Auto) 0.6 0.0-2.0 % Neutrophils # (Auto) 2.7 1.6-8.6 10 ^3/uL Lymphocytes # (Auto) 0.6 0.4-5.4 10 ^3/uL Monocytes # (Auto) 0.2 0-1.3 10 ^3/uL Eosinophils # (Auto) 0 0-0.8 10 ^3/uL Basophils # (Auto) 0 0-0.2 10 ^3/uL Nucleated Red Blood Cells 0.9 % Platelet Estimate Decreased Large Platelets Few Macrocytosis Slight Sodium Level 140 136-145 mmol/L Potassium Level 3.7 3.5-5.1 mmol/L Chloride Level 101 98-107 mmol/L Carbon Dioxide Level 25 20-31 mmol/L Anion Gap 14 5-15 Blood Urea Nitrogen 11 9-23 mg/dL Creatinine 0.71 0.550-1.02 mg/dL Glomerular Filtration Rate Calc 93 >90 mL/min BUN/Creatinine Ratio 15.5 10.0-20.0 Serum Glucose 131 H 74-106 mg/dL Calcium Level 10.2 8.7-10.4 mg/dL Total Bilirubin 0.6 0.2-1.0 mg/dL Aspartate Amino Transferase (AST) 26 13-40 U/L Alanine Aminotransferase (ALT) 30 7-40 U/L Alkaline Phosphatase 84 46-116 U/L B-Type Natriuretic Peptide 30.36 0-100 pg/mL Total Protein 7.7 5.7-8.2 g/dL Albumin 4.8 3.2-4.8 g/dL Lipase 35 12-53 U/L Assessment New onset grand mal seizure secondary to hypertensive encephalopathy Altered mental status Status epileptics Postictal status Toxic/metabolic encephalopathy Abnormal MR brain scan, likely posterior reversible encephalopathy Macrocytosis Plan/Recommendation Monitoring Supportive treatment Telemetry for now Vitamin B12, folic acid EEG Ativan for seizure breakthrough Preventive antiepileptic treatment is not indicated at this moment More recommendation per clinical course Progress: Poor This medical document was created using an electronic medical record system with [employer] computerized dictation system. Although this document has been carefully reviewed, there may still be some phonetic and typographical errors. These areas are purely typographical due to imperfections of the software programs, and do not reflect any compromise in the patient's medical care. Plan discussed with: Daughter, Other DELANO JENKINS MD Nov 14, 2024 09:30
[2024-11-14 11:50] LABS: Folate (Folic Acid) 17.96 ng/mL (>5.38)
[2024-11-14] MEDS: LABETALOL HCL 20 MG/4 ML VL IV PRN (12:57)
--- NOTE | 2024-11-14 14:59 | DVHSR ---
APPROVED REPORT EXAM: Two-dimensional and M-mode echocardiogram with Doppler and color Doppler. Blood Pressure: 133/70 mmHg INDICATION Elevated troponin Abnormal ECG RISK FACTORS Height: 5'2", Weight: 120 DIMENSIONS LVDd3.7 (3.8-5.7cm)LA (2D)3.3 (1.9-4.0cm)Aortic Root2.5 (2.0-3.7cm) LVDs2.4 (2.5-4.0cm)LA (MM) (1.9-4.0cm)Aortic Cusp Exc1.4 (1.5-2.0cm) EF (%) 65.0 (55-70%)Rt. Atrium3.2 (1.9-4.0cm)Asc. Aorta cm IVSd0.9 (0.7-1.1cm)RV (D) (1.8-2.4cm) PWd0.9 (0.7-1.1cm) Mitral Valve MitralMitral Stenosis E wave0.56m/sMV Mean GR.mmHg A wave0.91m/sMV Peak GR.mmHg E/A ratio0.62D MVAcm2 DECEL [id number] 1/2 Tim[place] Aortic Valve Aortic ValveAortic Stenosis V11.26m/Bobby Mean GR.4mmHg V21.40m/Bobby Peak GR.8mmHg LVOT Diameter1.7 (1.8-2.4cm)Doppler AVA2.04cm2 Tricuspid Valve TR Velocity2.63m/s [id number] Other Information Technically limited study due to body habitus and patient position. Conclusion lvef 70% by visual estimate mild LVH normal rv function- mild enlarged no severe valve abnormalities noted
[2024-11-14 21:45] VITALS: RESP 20; O2SAT 94
[2024-11-15] MEDS: SODIUM CHLORIDE 0.9% 1,000 ML IV ONE (05:30)
[2024-11-15] MEDS: hydrALAZINE HCL 20 MG/ML VL IV ONE (05:38)
--- NOTE | 2024-11-15 06:04 | DVHPN2 ---
Progress Note Date Seen: Nov 15, 2024 Medical Necessity Reason Pt with a Central, PICC or Fol: No Subjective Other Systems: seen by neuro bp 160s Objective vital signs Vital Sign Date Time Temp Pulse Resp B/P (MAP) Pulse Ox O2 Delivery O2 Flow Rate FiO2 11/15/24 05:38 162/82 11/15/24 05:20 89 11/15/24 05:00 16 96 11/15/24 03:00 98.0 98.0 11/14/24 21:45 Room Air* 0 21 Total Intake and Output 11/14/24 11/14/24 11/15/24 15:00 23:00 07:00 Intake Total 625 ml 125 ml Output Total 1300 ml Balance 625 ml 125 ml -1300 ml medications Current Medications Medications Dose Ordered Sig/Abrahan Route Start Time Stop Time Status Last Admin Dose Admin Nitroglycerin 0.4 mg Q5MINP PRN SL 11/14/24 07:15 Morphine Sulfate 2 mg Q30M PRN IV 11/14/24 07:15 Ondansetron HCl 4 mg Q6HPRN PRN IV 11/14/24 07:15 Lorazepam 1 mg Q1HP PRN IV 11/14/24 07:30 Labetalol HCl 10 mg Q4HPRN PRN IV 11/14/24 10:45 11/15/24 04:06 10 MG Examination: GENERAL:Abnormal, HEENT:Abnormal, LUNGS:Abnormal, CVS:Abnormal, ABDOMEN:Abnormal laboratory and microbiology Test 11/15/24 05:54 Range/Units Serum Glucose Pending Problem List/Assessment/Plan Problem List/Assessment/Plan HTN emergency r//o cva HL frailty AMS elevated troponin echo shows preserved lvef bp control plan per neuro asa, statin when feasible outpt fu Plan discussed with: Other (rn) Date of Service: Nov 15, 2024 Billing Provider: JAKUB CARRILLO MD Common Visit Codes: NOT BILLABLE JAKUB CARRILLO MD Nov 15, 2024 06:04
[2024-11-15 06:44] LABS: Alanine Aminotransferase 39 U/L (7-40); Alkaline Phosphatase 66 U/L (46-116); Anion Gap 10 (5-15); BUN/Creatinine Ratio 20.6 (10.0-20.0); Blood Urea Nitrogen 13 mg/dL (9-23); Calcium 9.2 mg/dL (8.7-10.4); Carbon Dioxide 25 mmol/L (20-31); Chloride 105 mmol/L (98-107); Sodium 140 mmol/L (136-145)
[2024-11-15 06:46] LABS: Aspartate Aminotransferase 30 U/L (13-40); Bilirubin, Total 0.5 mg/dL (0.2-1.0); Total Protein 6.5 g/dL (5.7-8.2)
[2024-11-15 06:47] LABS: Glucose 111 mg/dL (74-106); Potassium 3.5 mmol/L (3.5-5.1)
[2024-11-15 07:28] LABS: Basophils # (auto) 0 10 ^3/uL (0-0.2); Basophils % (auto) 0.1 % (0.0-2.0); Eosinophils # (auto) 0 10 ^3/uL (0-0.8); Eosinophils % (auto) 0.1 % (0.0-7.0); Lymphocytes # (auto) 0.5 10 ^3/uL (0.4-5.4); Monocytes # (auto) 0.1 10 ^3/uL (0-1.3)
[2024-11-15 07:30] LABS: Hematocrit 42.5 % (36.0-46.0); Hemoglobin 14.4 g/dL (12.2-16.2); Lymphocytes % (auto) 11.9 % (10.0-50.0); Mean Corpuscular Hgb Conc. 33.8 g/dL (32.0-36.0); Mean Corpuscular Volume 106.4 fL (80.0-100.0); Monocytes % (auto) 2.4 % (0.0-12.0); Neutrophils # (auto) 3.4 10 ^3/uL (1.6-8.6); Neutrophils % (auto) 85.5 % (37.0-80.0); Nucleated Red Blood Cells % 0.3 %; Platelet Count (auto) 82 10^3/uL (140-450); Red Blood Cells 3.99 10^6/uL (4.0-5.20); Red Cell Distribution Width 15.7 % (11.8-14.3)
--- NOTE | 2024-11-15 09:12 | DVHPN2 ---
Progress Note - Dictate Date Seen: Nov 15, 2024 Medical Necessity Reason Pt with a Central, PICC or Fol: No Subjective Mr. Mccall is a 67 years old right-handed female with a history of hypertension, arthritis, lupus, she was brought to the hospital on 11/14/2024 with a chief company of general weakness, headache. The patient was also had seizure activity in the hospital I have seen and examined the patient, talked to her nurse, sitter and other medical staff, she was better, awake, oriented to person, place, she follows verbal commands, no seizure activity UDS, 11/14/2024: Negative Plasma alcohol, 11/14/2024: <3 Urinalysis, 11/14/2024: WBC: <1, urine leukocyte esterase: Negative ABG, 11/14/2024: Respiratory acidosis WBC/HB/PLT/MCV, 11/14/2024: 3.5/17.9/116/104.4 Lactic acid, 11/14/2024: 3.2, 2.5, 11/14/24:3.2 CMP, 11/14/2024: Unremarkable NH3, 11/14/2024:12 Vitamin B12, 11/14/2024: 358 Folic acid, 11/14/2024:17.6 CT head, 11/14/2024: 1. Generalized brain atrophy. 2. Small vessel ischemic/degenerative changes. 3. No acute intracranial hemorrhage, midline shift or mass effect. If symptoms persist, further evaluation with MRI is recommended. 4. No significant changes since the prior exam. MRI head, 11/14/2024: 1. No evidence of acute infarct or hemorrhage. 2. T2/FLAIR hyperintense signal in the occipital lobes bilaterally, may be seen in the setting of postictal changes.Additional nonacute 3. Findings as described above vital signs Vital Sign Date Time Temp Pulse Resp B/P (MAP) Pulse Ox O2 Delivery O2 Flow Rate FiO2 11/15/24 08:37 102 185/84 11/15/24 05:00 16 96 11/15/24 03:00 98.0 98.0 11/14/24 21:45 Room Air* 0 21 Total Intake and Output 11/14/24 11/14/24 11/15/24 15:00 23:00 07:00 Intake Total 625 ml 125 ml 100 ml Output Total 1300 ml Balance 625 ml 125 ml -1200 ml medications Current Medications Medications Dose Ordered Sig/Abrahan Route Start Time Stop Time Status Last Admin Dose Admin Nitroglycerin 0.4 mg Q5MINP PRN SL 11/14/24 07:15 Morphine Sulfate 2 mg Q30M PRN IV 11/14/24 07:15 Ondansetron HCl 4 mg Q6HPRN PRN IV 11/14/24 07:15 Lorazepam 1 mg Q1HP PRN IV 11/14/24 07:30 Labetalol HCl 10 mg Q4HPRN PRN IV 11/14/24 10:45 11/15/24 08:37 10 MG objective General: the patient is well developed and nourished. No acute distress. MENTAL STATUS: Subjective SPEECH, LANGUAGE, HIGHER CORTICAL FUNCTION: no aphasia or dysathria. CRANIAL NERVES: Pupils are equal, round and reactive. She has doll's eye and corneal reflexes Facial sensation okay to painful stimuli in all three divisions bilaterally. Mandibular strength intact. Facial muscles symmetrical and strength intact. SENSATION: Okay to pain and light touch MOTOR: Normal tone in the upper and lower extremity. Normal muscle bulk. No fasciculations. No abnormal movements or posturing. She moves the arms REFLEXES: Deep tendon reflexes are symmetrical. No pathological reflexes. CEREBELLAR/COORDINATION: Deferred GAIT/STATION: deferred. laboratory and microbiology Laboratory Tests 11/15/24 05:54 Test 11/15/24 05:54 Range/Units Serum Glucose 111 H 74-106 mg/dL Problem List New onset grand mal seizure secondary to hypertensive encephalopathy Altered mental status Status epileptics Postictal status Toxic/metabolic encephalopathy Abnormal MR brain scan, likely posterior reversible encephalopathy Macrocytosis Assessment/Plan Monitoring Supportive treatment ROMINA care Ativan for seizure breakthrough Preventive antiepileptic treatment is not indicated at this moment More recommendation per clinical course This medical document was created using an electronic medical record system with [employer] dictation system. Although this document has been carefully reviewed, there may still be some phonetic and typographical errors. These areas are purely typographical due to imperfections of the software programs, and do not reflect any compromise in the patient's medical care. Prognosis poor Plan discussed with: Daughter, Other Critical Care Time(min): 30 DELANO JENKINS MD Nov 15, 2024 09:12
[2024-11-15 14:17] VITALS: BP 179/86; PULSE 101; RESP 16; TEMP 98.5; O2SAT 95
--- NOTE | 2024-11-15 16:00 | DVHPN2 ---
Progress Note - Dictate Date Seen: Nov 15, 2024 Medical Necessity Reason Pt with a Central, PICC or Fol: No Subjective Patient remains sluggish and altered, only oriented to self. vital signs Vital Sign Date Time Temp Pulse Resp B/P (MAP) Pulse Ox O2 Delivery O2 Flow Rate FiO2 11/15/24 14:17 98.5 101 16 179/86 (117) 95 98.5 11/14/24 21:45 Room Air* 0 21 Total Intake and Output 11/14/24 11/14/24 11/15/24 15:00 23:00 07:00 Intake Total 625 ml 125 ml 100 ml Output Total 1300 ml Balance 625 ml 125 ml -1200 ml medications Current Medications Medications Dose Ordered Sig/Abrahan Route Start Time Stop Time Status Last Admin Dose Admin Nitroglycerin 0.4 mg Q5MINP PRN SL 11/14/24 07:15 Morphine Sulfate 2 mg Q30M PRN IV 11/14/24 07:15 Ondansetron HCl 4 mg Q6HPRN PRN IV 11/14/24 07:15 Lorazepam 1 mg Q1HP PRN IV 11/14/24 07:30 Labetalol HCl 10 mg Q4HPRN PRN IV 11/14/24 10:45 11/15/24 08:37 10 MG objective General appearance: No acute distress Respiratory: Lungs clear to auscultation. No wheezing, crackles Cardiovascular: Regular rate and rhythm, no murmurs. No edema Abdomen: Soft, nondistended, nontender, bowel sounds present MSK: Normal range of motion. Neuro: Lethargic and oriented to self only. No focal deficits. laboratory and microbiology Laboratory Tests 11/15/24 05:54 Test 11/15/24 05:54 Range/Units Serum Glucose 111 H 74-106 mg/dL Assessment/Plan 1. Altered Mental Status concerning for PRESS 2. Hypertensive Emergency 3. NSTEMI-Demand Ischemia -Neurology consulted -MRI brain negative -EEG pending -Presentation appears consistent with PRESS. Aggressive blood pressure parameters 1 20-1 40 systolic blood pressure. -Labetalol as needed as needed -Avoid hydralazine given patient's history of lupus -N.p.o. pending bedside swallow eval -Seizure precautions -Full code Plan discussed with: Daughter ARMANI RICHARD DO Nov 15, 2024 16:00
[2024-11-15 16:30] VITALS: BP 157/95; PULSE 105; RESP 15; TEMP 99; O2SAT 94
[2024-11-15 20:00] VITALS: BP 181/98; PULSE 111; PULSE 112; RESP 19; TEMP 99.2; O2SAT 96
[2024-11-15] MEDS: LOSARTAN POTASSIUM 50 MG TAB PO SCH (21:30)
--- NOTE | 2024-11-16 00:48 | DVHEEG2 ---
Neurology EEG Procedural Note Procedural Note EXAM DATE: 11/15/2024 REFERRING DOCTOR: Dr. Jenkins TECHNIQUE: Eighteen channels of EEG, 2 channels of EOG, and 1 channel of EKG were recorded using the International 10/20 system. CLINICAL DATA: The patient was referred for an EEG evaluation for the evidence of seizure disorder. MEDICATIONS: See the chart BACKGROUND ACTIVITY: There was [id number] amount of mixed theta and delta activity over both hemispheres, that was reactive to external stimuli ACTIVATION: Hyperventilation: Not done Photic Stimulation: Not done Sleep: Not seen IMPRESSION: This is a mildly to moderately abnormal EEG, this EEG seen in mild to moderate cerebral dysfunction due to metabolic/hypoxic encephalopathy or medication effects, please correlate clinically. The EKG channel showed a regular heart rate of 102 per minute. [place] [address] DELANO JENKINS MD Nov 16, 2024 00:48
[2024-11-16 01:00] VITALS: BP 190/90; PULSE 98; RESP 20; TEMP 98.4; O2SAT 94
[2024-11-16 05:00] VITALS: BP 184/95; PULSE 90; RESP 18; TEMP 98.8; O2SAT 94
[2024-11-16 06:40] LABS: Alanine Aminotransferase 26 U/L (7-40); Alkaline Phosphatase 64 U/L (46-116); Anion Gap 12 (5-15); Aspartate Aminotransferase 23 U/L (13-40); Blood Urea Nitrogen 12 mg/dL (9-23); Calcium 9.6 mg/dL (8.7-10.4); Carbon Dioxide 24 mmol/L (20-31); Chloride 104 mmol/L (98-107); Glucose 89 mg/dL (74-106); Sodium 140 mmol/L (136-145)
[2024-11-16 06:41] LABS: Bilirubin, Total 0.7 mg/dL (0.2-1.0); Total Protein 6.6 g/dL (5.7-8.2)
[2024-11-16 06:42] LABS: Basophils # (auto) 0 10 ^3/uL (0-0.2); Basophils % (auto) 0.1 % (0.0-2.0); Eosinophils # (auto) 0 10 ^3/uL (0-0.8); Hemoglobin 14.4 g/dL (12.2-16.2); Lymphocytes # (auto) 0.4 10 ^3/uL (0.4-5.4); Mean Corpuscular Hgb Conc. 33.4 g/dL (32.0-36.0); Monocytes # (auto) 0.1 10 ^3/uL (0-1.3); Nucleated Red Blood Cells % 0.2 %; Platelet Count (auto) 62 10^3/uL (140-450); Potassium 3.3 mmol/L (3.5-5.1); Red Blood Cells 4.08 10^6/uL (4.0-5.20)
[2024-11-16 06:44] LABS: Eosinophils % (auto) 0.1 % (0.0-7.0); Hematocrit 43.2 % (36.0-46.0); Lymphocytes % (auto) 12.2 % (10.0-50.0); Mean Corpuscular Hemoglobin 35.3 pg (28.0-32.0); Mean Corpuscular Volume 105.8 fL (80.0-100.0); Monocytes % (auto) 4.2 % (0.0-12.0); Neutrophils # (auto) 2.7 10 ^3/uL (1.6-8.6); Neutrophils % (auto) 83.4 % (37.0-80.0); Red Cell Distribution Width 15.7 % (11.8-14.3); White Blood Cell 3.2 10^3/uL (4.4-10.8)
[2024-11-16 08:15] VITALS: PULSE 84; PULSE 86; RESP 16; O2SAT 96
[2024-11-16] MEDS ORDERED: CELECOXIB 100 MG CAP PO PRN (09:30)
[2024-11-16] MEDS: predniSONE 5 MG TAB PO SCH (10:27)
[2024-11-16] MEDS: hydrOXYchloroQUINE SULFATE 200 MG TAB PO SCH (10:28)
[2024-11-16] MEDS: METOPROLOL TARTRATE 25 MG TAB PO SCH (10:28)
[2024-11-16] MEDS: amLODIPine BESYLATE 5 MG TAB PO SCH (10:28)
--- NOTE | 2024-11-16 11:17 | DVHPN2 ---
Progress Note - Dictate Date Seen: Nov 16, 2024 Medical Necessity Reason Pt with a Central, PICC or Fol: No Subjective Patient awake and alert today. She complains of severe body pain and generalized weakness. She has not been able to consume any p.o. intake. vital signs Vital Sign Date Time Temp Pulse Resp B/P (MAP) Pulse Ox O2 Delivery O2 Flow Rate FiO2 11/16/24 10:28 88 182/88 11/16/24 05:00 98.8 18 94 98.8 11/15/24 20:00 Room Air* 0 21 Total Intake and Output 11/15/24 11/15/24 11/16/24 15:00 23:00 07:00 Intake Total 400 ml 300 ml Output Total 450 ml 350 ml Balance -50 ml -50 ml medications Current Medications Medications Dose Ordered Sig/Abrahan Route Start Time Stop Time Status Last Admin Dose Admin Nitroglycerin 0.4 mg Q5MINP PRN SL 11/14/24 07:15 Morphine Sulfate 2 mg Q30M PRN IV 11/14/24 07:15 Ondansetron HCl 4 mg Q6HPRN PRN IV 11/14/24 07:15 Lorazepam 1 mg Q1HP PRN IV 11/14/24 07:30 Labetalol HCl 10 mg Q4HPRN PRN IV 11/14/24 10:45 11/16/24 06:04 10 MG Losartan Potassium 100 mg DAILY PO 11/15/24 21:30 11/16/24 10:27 100 MG Amlodipine Besylate 10 mg DAILY PO 11/16/24 10:00 11/16/24 10:28 10 MG Celecoxib 100 mg BID PRN PO 11/16/24 09:30 Hydroxychloroquine Sulfate 200 mg DAILY PO 11/16/24 10:00 11/16/24 10:28 200 MG Methotrexate 20 mg QWEEKLY PO 11/20/24 12:00 Metoprolol Tartrate 25 mg DAILY PO 11/16/24 10:00 11/16/24 10:28 25 MG Prednisone 2.5 mg DAILY PO 11/16/24 10:00 11/16/24 10:27 2.5 MG objective General appearance: No acute distress Respiratory: Lungs clear to auscultation. No wheezing, crackles Cardiovascular: Regular rate and rhythm, no murmurs. No edema Abdomen: Soft, nondistended, nontender, bowel sounds present MSK: Normal range of motion. Neuro: A/O x3 laboratory and microbiology Laboratory Tests 11/16/24 04:48 Test 11/16/24 04:48 Range/Units Serum Glucose 89 74-106 mg/dL Assessment/Plan 1. Altered Mental Status concerning for PRESS 2. Hypertensive Emergency 3. NSTEMI-Demand Ischemia -Neurology consulted -MRI brain negative -EEG negative for seizure -Presentation appears consistent with PRESS. Aggressive blood pressure parameters 1 0-140 systolic blood pressure. Started on losartan 100mg PO daily and amlodipine 10mg PO daily. -Labetalol 10 IV Q6H as needed -Avoid hydralazine given patient's history of lupus -Swallow eval pending -PT eval pending -Lupus medications restarted -Toradol 15mg IV x1 for pain -Seizure precautions -Full code Plan discussed with: Patient, Spouse MEAGANTOBYARMANI DO Nov 16, 2024 11:17
[2024-11-16] MEDS: KETOROLAC TROMETH 30 MG/ML 1ML VIAL IV ONE (12:59)
[2024-11-16 13:16] VITALS: BP 159/86; PULSE 79; RESP 16; TEMP 98.1; O2SAT 94
[2024-11-16] MEDS ORDERED: LOSA-534 PO (15:05)
[2024-11-16] MEDS ORDERED: AML5T PO (15:05)
[2024-11-16 16:45] VITALS: BP 140/71; PULSE 87; RESP 16; TEMP 98.2; O2SAT 94
[2024-11-16] MEDS: methylPREDNISolone SOD SUCC 125 MG/2 ML VL IV ONE (17:57)
[2024-11-16 18:19] VITALS: BP 140/71; PULSE 82; RESP 16; TEMP 36.8; O2SAT 94
--- NOTE | 2024-11-16 18:45 | DVHDS2 ---
Discharge Summary Date of Admission Nov 14, 2024 at 07:09 Date of Discharge: Nov 16, 2024 Labs/Diagnostic Data: Laboratory Results Test 11/16/24 04:48 11/14/24 08:39 11/14/24 07:38 11/14/24 06:10 White Blood Count 3.2 10^3/uL (4.4-10.8) Red Blood Count 4.08 10^6/uL (4.0-5.20) Hemoglobin 14.4 g/dL (12.2-16.2) Hematocrit 43.2 % (36.0-46.0) Mean Corpuscular Volume 105.8 fL (80.0-100.0) Mean Corpuscular Hemoglobin 35.3 pg (28.0-32.0) Mean Corpuscular Hemoglobin Concent 33.4 g/dL (32.0-36.0) Red Cell Distribution Width 15.7 % (11.8-14.3) Platelet Count 62 10^3/uL (140-450) Mean Platelet Volume 8.5 fL (6.9-10.8) Neutrophils (%) (Auto) 83.4 % (37.0-80.0) Lymphocytes (%) (Auto) 12.2 % (10.0-50.0) Monocytes (%) (Auto) 4.2 % (0.0-12.0) Eosinophils (%) (Auto) 0.1 % (0.0-7.0) Basophils (%) (Auto) 0.1 % (0.0-2.0) Neutrophils # (Auto) 2.7 10 ^3/uL (1.6-8.6) Lymphocytes # (Auto) 0.4 10 ^3/uL (0.4-5.4) Monocytes # (Auto) 0.1 10 ^3/uL (0-1.3) Eosinophils # (Auto) 0 10 ^3/uL (0-0.8) Basophils # (Auto) 0 10 ^3/uL (0-0.2) Nucleated Red Blood Cells 0.2 % Sodium Level 140 mmol/L (136-145) Potassium Level 3.3 mmol/L (3.5-5.1) Chloride Level 104 mmol/L (98-107) Carbon Dioxide Level 24 mmol/L (20-31) Anion Gap 12 (5-15) Blood Urea Nitrogen 12 mg/dL (9-23) Creatinine 0.50 mg/dL (0.550-1.02) Glomerular Filtration Rate Calc 102 mL/min (>90) BUN/Creatinine Ratio 24.0 (10.0-20.0) Serum Glucose 89 mg/dL (74-106) Calcium Level 9.6 mg/dL (8.7-10.4) Total Bilirubin 0.7 mg/dL (0.2-1.0) Aspartate Amino Transferase (AST) 23 U/L (13-40) Alanine Aminotransferase (ALT) 26 U/L (7-40) Alkaline Phosphatase 64 U/L (46-116) Total Protein 6.6 g/dL (5.7-8.2) Albumin 4.0 g/dL (3.2-4.8) Ammonia 12 umol/L (11-32) Blood Gas Specimen Type Arterial Blood Gas Sample Site Right radial Blood Gas Patient Temperature 37.0 Arterial Blood Date Drawn [id number] Arterial Blood pH 7.287 (7.350-7.450) Arterial Blood Partial Pressure CO2 49.2 mmHg (32.0-45.0) Arterial Blood Partial Pressure O2 270.1 mmHg (83.0-108.0) Arterial Blood HCO3 23.0 mmol/L (21.0-28.0) Arterial Blood Oxygen Saturation 99.7 % (94.0-98.0) Arterial Blood Base Excess -4.1 mmol/L (-2.0-3.0) Arterial Blood Oxyhemoglobin 98.3 % (94.0-98.0) Arterial Blood Carboxyhemoglobin 0.7 % (0.5-1.5) Arterial Blood Methemoglobin 0.7 % (0.0-1.5) Peng Test Yes Blood Gas Total Hemoglobin 16.00 g/dL (12.0-16.0) Blood Gas Liter Flow 8.00 Blood Gas Modality Mask - simple FiO2 % 56.0 Troponin I High Sensitivity 39 ng/L (</=34) Plasma/Serum Blood Alcohol < 3.0 mg/dL (<10) Test 11/14/24 05:56 11/14/24 03:57 11/14/24 03:50 11/14/24 03:37 POC Glucose 191 mg/dl (70-106) Influenza Type A Antigen Negative (Negative) Influenza Type B Antigen Negative (Negative) SARS-CoV-2 Antigen (Rapid) Negative (NEGATIVE) Urine Color Colorless (Yellow) Urine Clarity Clear (Clear) Urine pH 7.0 (5.0-9.0) Urine Specific [place] 1.009 (1.001-1.035) Urine Protein Trace (Negative) Urine Ketones 1+ (Negative) Urine Blood Negative /uL (Negative) Urine Nitrite Negative (Negative) Urine Bilirubin Negative (Negative) Urine Urobilinogen Normal mg/dL (Negative) Urine Leukocyte Esterase Negative /uL (Negative) Urine RBC 2 /hpf (0 - 4) Urine Microscopic WBC < 1 /HPF (0-5) Urine Squamous Epithelial Cells None seen /hpf (<5) Urine Bacteria None seen /hpf (None Seen) Urine Mucus Few (None Seen) Urine Glucose Normal mg/dL (Normal) Urine Opiates Screen Neg (NEGATIVE) Urine Fentanyl Screen Neg (NEGATIVE) Urine Barbiturates Screen Neg (NEGATIVE) Urine Phencyclidine Screen Neg (NEGATIVE) Urine Amphetamines Screen Neg (NEGATIVE) Urine Benzodiazepines Screen Neg (NEGATIVE) Urine Cocaine Screen Neg (NEGATIVE) Urine Cannabinoids Screen Neg (NEGATIVE) Lactic Acid Level 2.5 mmol/L (0.4-2.0) Test 11/14/24 01:36 Platelet Estimate Decreased Large Platelets Few Macrocytosis Slight B-Type Natriuretic Peptide 30.36 pg/mL (0-100) Lipase 35 U/L (12-53) Vitamin B12 Level 358 pg/mL (211-911) Folic Acid 17.96 ng/mL (>5.38) Other Laboratory Tests 11/16/24 04:48 Brief Hx & Hospital Course: Patient is a 67-year-old female past medical history of lupus on methotrexate, prednisone, Plaquenil who presents due to abdominal pain, decreased p.o. intake for the past several days and altered mental status. On arrival, patient's blood pressure was noted to be 242/93. CT abdomen and pelvis was done which did not reveal any acute abnormalities. It was notable for nonobstructing bilateral nephrolithiasis, diverticulosis and hiatal hernia. Overnight in the ER, patient was believed to have a seizure. Patient underwent head CT which did not reveal any intracranial normalities. This was followed up by a brain MRI which did not reveal any acute abnormalities as well. Patient was given Ativan and Keppra at the time. She was evaluated by neurology which attributed her symptoms to PRESS. Patient's blood pressure was aggressively managed with a mix of IV medications. Patient was ultimately transition to losartan 100 mg p.o. daily and amlodipine 10 mg daily. Patient subsequently was monitored for several days and did not have a recurrence of his seizure. Her mental status returned to baseline and was alert and oriented x 4. Patient's lupus medications were subsequently restarted once she was tolerating p.o. Speech evaluated the patient and was advanced to full mechanical diet. Physical therapy worked with the patient. Home health physical therapy was set up. Patient was given Toradol and Solu-Medrol for her lupus pain. Patient was discharged in stable condition. Patient is to follow-up with her PCP. Condition at Discharge: Good Final Diagnosis/Problems List PRESS (Posterior reversible encephalopathy syndrome) Secondary Diagnosis: Hypertensive Emergency SLE Metabolic Encephalopathy Generalized Weakness Discharge Disposition: Home with Health Services Discharge Instruct/Medications Diet: Cardiac 2g Na,low cholest Activity: No Restrictions, As Tolerated Follow Up/Referral: Follow up with neurology. Follow up with rheumatology for lupus. Continue physical therapy at home with home health. Medications: Almodipine 10mg daily Losaratan 100mg daily Discharge Statement: "Patient was advised to return to the ER or call 911 if any headaches, dizziness, shortness of breath, chest pain, abdominal pain, bleeding, fevers, or worsening of medical condition. Patient was counseled about treatment plan, medications, possible side effects, patientverbalized understanding. All questions were answered to the best of my ability. This discharge took greater then 30 minutes in planning, reviewing documentation, counseling the patient, and discussing with other team members." ASSESSMENT ASSESSMENT Assessment PRESS (Posterior reversible encephalopathy syndrome) ARMANI RICHARD DO Nov 16, 2024 18:45
[2024-11-20] MEDS ORDERED: METHOTREXATE 2.5 MG TAB PO SCH (12:00)
== END 2024-11-16 19:30 | disposition home health service (06) | DRG 304 ==
LOC: ER 00:24 → OVERFLOW 07:09 → TELE-WESTW 11-15 14:40
PROVIDERS: ADMIT Internal Medicine; ATTEND Internal Medicine
DX: I16.1 Hypertensive emergency (principal); G93.41 Metabolic encephalopathy; I67.83 Posterior reversible encephalopathy syndrome; I67.4 Hypertensive encephalopathy; N20.0 Calculus of kidney; Z20.822 Contact with and (suspected) exposure to COVID-19; M32.9 Systemic lupus erythematosus, unspecified; E86.0 Dehydration; I10 Essential (primary) hypertension; D75.89 Other specified diseases of blood and blood-forming organs; G40.401 Other generalized epilepsy and epileptic syndromes, not intractable, with status epilepticus; K44.9 Diaphragmatic hernia without obstruction or gangrene; K57.30 Diverticulosis of large intestine without perforation or abscess without bleeding; Z90.49 Acquired absence of other specified parts of digestive tract; Z83.3 Family history of diabetes mellitus; Z82.3 Family history of stroke; Z79.899 Other long term (current) drug therapy; Z88.8 Allergy status to other drugs, medicaments and biological substances
CPT/HCPCS: 36415; 36600; 70450; 70551; 71045; 74176; 80053; 80307; 80320; 81001; 82140; 82607; 82746; 82805; 82962; 83605; 83690; 83880; 84484; 85025; 87426; 87804; 92610; 93005; 93306; 95819; 96361; 96365; 96375; 96376; 97163; 99291; G0378; J1885; J2405